=== PATIENT | female | born 1970 | race Caucasian/White ===

== ENCOUNTER 2016-10-02 13:40 | Inpatient (IN) | payer SELFPAY ==
[~2016-10-02] VITALS: Ht 162.6 cm; Wt 91.6 kg
[2016-10-02] MEDS ORDERED: ONDANSETRON PF 4 MG/2 ML VIAL. IV ONE (15:00)
[2016-10-02] MEDS ORDERED: IV NORMAL SALINE 1000ML BAG 1,000 ML IV ONE ×2 (15:00→18:00)
[2016-10-02 15:48] LABS: BASO # 0.1 x10^3/uL (0.0-0.2); BASO % 0 % (0-3); EOS % 0 % (0-3); HEMATOCRIT 43.5 % (36.0-47.0); HEMOGLOBIN 14.5 g/dL (12.0-15.5); LYMPH # 0.9 x10^3/uL (1.0-4.8); LYMPH % 3 % (24-48); MEAN CORPUSCULAR HEMOGLOBIN 29 pg (25-35); MEAN CORPUSCULAR HGB CONC 33 g/dL (31-37); MEAN CORPUSCULAR VOLUME 87 fL (79-100); MONO % 4 % (0-9); NEUT % 92 % (31-73); PLATELET COUNT 319 x10^3/uL (140-400); RED BLOOD COUNT 5.01 x10^6/uL (3.50-5.40); RED CELL DISTRIBUTION WIDTH 13.2 % (11.5-14.5); WHITE BLOOD COUNT 25.1 x10^3/uL (4.0-11.0)
--- NOTE | 2016-10-02 15:51 | RAD ---
Examination: Acute abdomen series History: History of constipation for 5 days. Comparison: None available Findings: The cardiomediastinal silhouette grossly appears unremarkable. There is no acute infiltrate or visualized pneumothorax. No evidence of free air noted under the hemidiaphragms. Feces and gas noted in the colon. Minimal air-fluid levels identified in the midabdomen. Impression: 1. No acute cardiopulmonary findings. 2. Minimal air-fluid levels identified in the midabdomen, probably bowel distention. Correlate clinically.
[2016-10-02 16:00] LABS: CALCIUM 8.8 mg/dL (8.5-10.1); GFR 60.2; POTASSIUM 3.3 mmol/L (3.5-5.1)
[2016-10-02 16:06] LABS: ALBUMIN 2.9 g/dL (3.4-5.0); ALBUMIN/GLOBULIN RATIO 0.5 (1.0-1.7); TOTAL BILIRUBIN 1.3 mg/dL (0.2-1.0); TOTAL PROTEIN 8.2 g/dL (6.4-8.2)
[2016-10-02] MEDS ORDERED: IOHEXOL 300 MG/ML 75 ML VIAL IV ONE (16:30)
[2016-10-02] MEDS ORDERED: CONTRAST GIVEN MC PRN (16:30)
[2016-10-02 16:36] LABS: PLT ESTIMATE ADEQUATE (ADEQUATE)
[2016-10-02] MEDS ORDERED: PROCHLORPERAZINE 10 MG/2 ML VIAL. IV ONE (16:45)
--- NOTE | 2016-10-02 16:52 | PHYS DOC ---
Past Medical History Past Medical History: Other Additional Past Medical Histor: PANIC DISORDER Past Surgical History: No Surgical History Alcohol Use: None Drug Use: None Adult General Chief Complaint Chief Complaint: ABDOMINAL PAIN HPI HPI Patient is a 45 year old female who presents with moderate generalized abdominal pain with vomiting that began 5 days ago. Patient states she has history of constipation and believes she is constipated. Patient denies any known cause for her constipation. She states her last bowel movement was 5 days ago and normal. Patient states she has tried enemas with no relief. Patient denies any chance she is . Review of Systems Review of Systems Constitutional: Denies fever or chills [] Eyes: Denies change in visual acuity, redness, or eye pain [] HENT: Denies nasal congestion or sore throat [] Respiratory: Denies cough or shortness of breath [] Cardiovascular: No additional information not addressed in HPI [] GI: Generalized abdominal pain and vomiting : Denies dysuria or hematuria [] Musculoskeletal: Denies back pain or joint pain [] Integument: Denies rash or skin lesions [] Neurologic: Denies headache, focal weakness or sensory changes [] Endocrine: Denies polyuria or polydipsia [] Current Medications Current Medications Current Medications Medications (Trade) Dose Ordered Sig/Jennifer Start Time Stop Time Status Last Admin Dose Admin Dobutamine HCl/ Dextrose 250 ml @ 0 mls/hr CONT PRN 10/02/16 18:00 Info (Do NOT chart on this entry -- for MONITORING) 1 each PRN DAILY PRN 10/02/16 16:30 10/04/16 16:29 Iohexol (Omnipaque 300 Mg/ml) 75 ml 1X ONCE 10/02/16 16:30 10/02/16 16:31 DC 10/02/16 17:07 75 ML Norepinephrine Bitartrate 250 ml @ 0 mls/hr CONT PRN 10/02/16 18:00 Ondansetron HCl (Zofran) 4 mg 1X ONCE 10/02/16 15:00 10/02/16 15:01 DC 10/02/16 15:40 4 MG Prochlorperazine Edisylate (Compazine) 10 mg 1X ONCE 10/02/16 16:45 10/02/16 16:46 DC 10/02/16 16:42 10 MG Sodium Chloride 1,000 ml @ 1,000 mls/hr 1X ONCE 10/02/16 15:00 10/02/16 15:59 DC 10/02/16 15:40 1,000 MLS/HR Allergies Allergies Allergies Coded Allergies Type Severity Reaction Last Updated Verified codeine Adverse Reaction Intermediate N/V 10/02/16 Yes hydrocodone Adverse Reaction Intermediate N/V 10/02/16 Yes Physical Exam Physical Exam Constitutional: Well developed, well nourished, no acute distress, non-toxic appearance. [] HENT: Normocephalic, atraumatic, bilateral external ears normal, oropharynx moist, no oral exudates, nose normal. [] Eyes: PERRLA, EOMI, conjunctiva normal, no discharge. [] Neck: Normal range of motion, no tenderness, supple, no stridor. [] Cardiovascular:Heart rate regular rhythm, no murmur [] Lungs & Thorax: Bilateral breath sounds clear to auscultation [] Abdomen: Bowel sounds normal, soft, no tenderness, no masses, no pulsatile masses. [] Skin: Warm, dry, no erythema, no rash. [] Back: No tenderness, no CVA tenderness. [] Extremities: No tenderness, no cyanosis, no clubbing, ROM intact, no edema. [] Neurologic: Alert and oriented X 3, normal motor function, normal sensory function, no focal deficits noted. [] Psychologic: Affect normal, judgement normal, mood normal. [] Current Patient Data Vital Signs Vital Signs Date Time Temp Pulse Resp B/P (MAP) Pulse Ox O2 Delivery O2 Flow Rate FiO2 10/02/16 17:18 115/65 (82) 10/02/16 15:25 106 98 10/02/16 14:55 97.6 18 Room Air 97.6 Lab Values Laboratory Tests Test 10/02/16 15:35 White Blood Count 25.1 x10^3/uL (4.0-11.0) H Red Blood Count 5.01 x10^6/uL (3.50-5.40) Hemoglobin 14.5 g/dL (12.0-15.5) Hematocrit 43.5 % (36.0-47.0) Mean Corpuscular Volume 87 fL (79-100) Mean Corpuscular Hemoglobin 29 pg (25-35) Mean Corpuscular Hemoglobin Concent 33 g/dL (31-37) Red Cell Distribution Width 13.2 % (11.5-14.5) Platelet Count 319 x10^3/uL (140-400) Neutrophils (%) (Auto) 92 % (31-73) H Lymphocytes (%) (Auto) 3 % (24-48) L Monocytes (%) (Auto) 4 % (0-9) Eosinophils (%) (Auto) 0 % (0-3) Basophils (%) (Auto) 0 % (0-3) Neutrophils # (Auto) 23.2 x10^3uL (1.8-7.7) H Lymphocytes # (Auto) 0.9 x10^3/uL (1.0-4.8) L Monocytes # (Auto) 1.0 x10^3/uL (0.0-1.1) Eosinophils # (Auto) 0.1 x10^3/uL (0.0-0.7) Basophils # (Auto) 0.1 x10^3/uL (0.0-0.2) Segmented Neutrophils % 86 % (35-66) H Band Neutrophils % 4 % (0-9) Lymphocytes % 6 % (24-48) L Monocytes % 4 % (0-10) Platelet Estimate Adequate (ADEQUATE) Sodium Level 129 mmol/L (136-145) L Potassium Level 3.3 mmol/L (3.5-5.1) L Chloride Level 90 mmol/L (98-107) L Carbon Dioxide Level 34 mmol/L (21-32) H Anion Gap 5 (6-14) L Blood Urea Nitrogen 22 mg/dL (7-20) H Creatinine 1.0 mg/dL (0.6-1.0) Estimated GFR (Cockcroft-Gault) 60.2 BUN/Creatinine Ratio 22 (6-20) H Glucose Level 141 mg/dL (70-99) H Calcium Level 8.8 mg/dL (8.5-10.1) Total Bilirubin 1.3 mg/dL (0.2-1.0) H Aspartate Amino Transferase (AST) 50 U/L (15-37) H Alanine Aminotransferase (ALT) 169 U/L (14-59) H Alkaline Phosphatase 146 U/L (46-116) H Total Protein 8.2 g/dL (6.4-8.2) Albumin 2.9 g/dL (3.4-5.0) L Albumin/Globulin Ratio 0.5 (1.0-1.7) L Lipase 337 U/L (73-393) Laboratory Tests 10/02/16 15:35 Laboratory Tests 10/02/16 15:35 EKG EKG [] Radiology/Procedures Radiology/Procedures []PROCEDURE: ACUTE ABDOMEN SERIES Examination: Acute abdomen series History: History of constipation for 5 days. Comparison: None available Findings: The cardiomediastinal silhouette grossly appears unremarkable. There is no acute infiltrate or visualized pneumothorax. No evidence of free air noted under the hemidiaphragms. Feces and gas noted in the colon. Minimal air-fluid levels identified in the midabdomen. Impression: 1. No acute cardiopulmonary findings. 2. Minimal air-fluid levels identified in the midabdomen, probably bowel distention. Correlate clinically. DICTATED and SIGNED BY: LIBERTY VAZQUEZ MD DATE: 10/02/16 1546 CC: HARRISON RIVAS APRN; NO PCP; NON,STAFF ~ Course & Med Decision Making Course & Med Decision Making Pertinent Labs and Imaging studies reviewed. (See chart for details) This is a 45-year-old female patient who presents today with vomiting and generalized abdominal pain that began 5 days ago. Patient states she believes she is constipated. Her last bowel movement was 5 days ago normal. Patient denies any known cause for her constipation. Acute abdominal series was noted for air fluid levels identified in the abdomen and probably bowel distention. CBC with a WBC of 25.1. CT abdomen and pelvic was ordered, sodium 129. Patient is not confused. Normal saline was ordered with sepsis protocal observed though she does not meet the sepsis protocol fully. Blood cultures were also ordered. She was started on antibiotics. CMP with AST of 50, ALT of 169, ALT of 146. Temperature 97.6, heart rate 100, respiration 18 on room air, blood pressure 123/70. Consulted with Dr. Najera and patient was admitted. CT of abdomen pending Dragon Disclaimer Dragon Disclaimer This electronic medical record was generated, in whole or in part, using a voice recognition dictation system. Departure Departure Impression: Primary Impression: Intractable nausea and vomiting Additional Impressions: Abdominal pain Hyponatremia Leukocytosis Disposition: ADMITTED INPATIENT Admitting Physician: Other Condition: STABLE Referrals: NO PCP (PCP) Problem Qualifiers Primary Impression: Intractable nausea and vomiting Vomiting type: unspecified Qualified Codes: R11.2 - Nausea with vomiting, unspecified Additional Impressions: Abdominal pain Abdominal location: generalized Qualified Codes: R10.84 - Generalized abdominal pain Leukocytosis Leukocytosis type: unspecified Qualified Codes: D72.829 - Elevated white blood cell count, unspecified HARRISON RIVAS [employer] Oct 02, 2016 16:52
[2016-10-02 17:31] LABS: BILIRUBIN,URINE NEGATIVE (NEG); GLUCOSE,URINE NEGATIVE (NEG); NITRITE,URINE NEGATIVE (NEG); PH,URINE 6.5; PROTEIN,URINE 100 mg/dL (NEG-TRACE); UROBILINOGEN,URINE 0.2 mg/dL (0.2 mg/dL)
--- NOTE | 2016-10-02 17:45 | RAD ---
EXAM: Abdomen and pelvis CT with intravenous contrast. HISTORY: Pain. TECHNIQUE: Computed tomographic images of the abdomen and pelvis were obtained following the administration of 75 cc Omnipaque 300 intravenous contrast. Multiplanar reformatting was performed. *One or more of the following individualized dose reduction techniques were utilized for this examination: 1. Automated exposure control. 2. Adjustment of the mA and/or kV according to patient size. 3. Use of iterative reconstruction technique. COMPARISON: None. FINDINGS: Evaluation of the lower thorax demonstrates small left and trace right pleural effusions with lingular and left greater than right lower lobe airspace disease. The heart is normal in size. No hepatic lesion is seen. The spleen is normal in size. The adrenal glands and kidneys are unremarkable. The pancreas is mildly diffusely enlarged and there is diffuse peripancreatic fatty stranding and trace fluid, consistent with acute pancreatitis. No focal pancreatic lesion is seen. No loculated fluid collection is seen. The appendix is normal in appearance. There is mild thickening of the splenic flexure the colon, likely reactive given adjacent pancreatitis. There is no obstruction. There are reactive lymph nodes in the peripancreatic distribution. The uterus, ovaries and bladder are unremarkable. There is no suspicious osseous lesion. IMPRESSION: 1. Acute pancreatitis. There is associated peripancreatic fatty stranding, trace fluid and reactive lymph nodes. No pseudocyst is identified. 2. Small amount of pelvic free fluid, likely physiologic or due to aforementioned acute pancreatitis. 3. Small left and trace right pleural effusions with lingular and left greater than right lower lobe airspace disease, likely due to atelectasis Electronically signed by: Marian Cook MD (10/02/2016 5:43 PM)
[2016-10-02] MEDS ORDERED: ONDANSETRON PF 4 MG/2 ML VIAL. IV PRN (18:00)
[2016-10-02] MEDS ORDERED: PROCHLORPERAZINE 10 MG/2 ML VIAL. IV PRN (18:00)
[2016-10-02] MEDS ORDERED: fentaNYL PF VIAL 100 MCG/2 ML VIAL IV PRN (18:00)
[2016-10-02] MEDS ORDERED: NOREPINEPHRIN PREMIX 250 ML IV PRN (18:00)
[2016-10-02 18:03] LABS: BACTERIA,URINE 0 /HPF (0-FEW); SQUAMOUS EPITHELIAL CELL,UR MOD /LPF
[2016-10-02] MEDS: FAMOTIDINE 20 MG/2 ML VIAL IVP SCH (19:26)
[2016-10-02 20:15] VITALS: BP 118/75
[2016-10-02 23:50] VITALS: BP 112/70
--- NOTE | 2016-10-02 23:56 | ACF ---
Admission Forms Criteria VOMITING Clinical Indications for Admission to Inpatient Care ( Place 'X' for any and all applicable criteria): Admission is indicated for 1 or more of the following(1)(2)(3): [ ]I. Complete or partial gastrointestinal obstruction [ ]II. Vomiting due to significant metabolic derangement (eg, severe hypercalcemia, diabetic ketoacidosis) [ ]III. Other cause of vomiting requiring hospitalization (eg, poisoning, increased intracranial pressure) [X]IV. Inpatient admission required rather than observation care because of 1 or more of the following [ ]i) Hemodynamic instability [ ]ii) Vomiting that is severe or persistent indicated by 1 or more of the following 1) Numerous episodes of vomiting in past 24hours (eg, every 1 to 2 hours) 2) Suggests severe underlying cause or complication (eg , projectile, feculent, bilious, coffee ground, bloody) 3) Appropriate antiemetic treatment (eg, repeated oral or parenteral dosing) does not sufficiently reduce vomiting within 12 to 24 hours of treatment 4) Treatment regimen necessary to adequately control vomiting requires inpatient level of care (eg, not immediately available in outpatient setting) [X]iii) Severe electrolyte abnormalities requiring inpatient care [ ]iv) Severe pain requiring acute inpatient management( Continuous or frequent (eg, every 2 to 4 hours) parental analgesics or analgesic regimen that can only be performed or initiated in inpatient setting) [ ]v) High fever or infection requiring inpatient admission as indicated by 1 or more of the following(7)(8): [ ]1) Appropriate outpatient or observation care antimicrobial treatment unavailable, not effective, or not feasible [ ]2) Documented bacteremia [ ]3) Temp >104.9 degrees F (40.5 degrees C) (oral) [ ]4) Temp >103.1 degrees F (39.5 C) (oral) or <96.8 degrees F (36 C) (rectal) that does not respond to all emergency treatment measures [ ]vi) Acute renal failure [ ]vii) IV fluid required rather than oral rehydration to replace significant on going losses (greater than 3 L/m2 per day) [ ]viii) Parenteral nutrition regimen that must be implemented on inpatient basis [X]ix) Other condition, treatment or monitoring requiring inpatient admission Extended stay beyond goal length of stay may be needed for(1)(4): [ ]a) Severe vomiting [ ]b) Persistent vomiting, vital sign changes, severe electrolyte imbalance , or diagnosed cause of vomiting that requires continued hospitalization (eg, gastrointestinal obstruction , increased intracranial pressure) [ ]c) Surgery to treat identified causes of vomiting (eg, bowel obstruction , intracranial process) [ ]d) Comorbid illness that requires inpatient care (eg, acute heart failure , renal failure) [ ]e) Need for inpatient endoscopy The original [facility] content created by [email or web address] has been revised. The portions of the content which have been revised are identified through the use of italic text or in bold, and [facility] has neither reviewed nor approved the modified material. All other unmodified content is copyright [facility]. Please see references footnoted in the original [facility] edition 2016 Admission Criteria Met?: Yes ARMANDO SMITH Oct 02, 2016 23:56 SHANNON HANSEN MD Oct 05, 2016 17:30
--- NOTE | 2016-10-03 00:16 | HP ---
ADMIT DATE: 10/02/2016 CHIEF COMPLAINT: Intractable nausea, vomiting. HISTORY OF PRESENT ILLNESS: The patient is a 45-year-old woman without any past medical history who presented to the Emergency Room with moderate abdominal pain resulting from 4 days of nausea and vomiting. She related that last Saturday she ate a sandwich and after that started vomiting continuously for the past 4 days. She relates that she occasionally has issues with vomiting when she gets constipated. Normal bowel movement pattern for her is twice a week. She states her last bowel movement was about 5 days ago was normal. She did try an enema this morning with only minor results. She denies any fevers, chills, no sick contacts at home. Currently, nausea is much better controlled. Her abdominal pain is especially in the epigastric area and worse with deep breathing or coughing. PAST MEDICAL HISTORY: Anxiety, agoraphobia. FAMILY HISTORY: No GI or psych issues known. ALLERGIES: CODEINE, HYDROCODONE. MEDICATIONS: No home medications listed. REVIEW OF SYSTEMS: Currently, nausea is fairly well controlled, she has received both Zofran as well as Compazine. She has hiccups intermittently, abdominal pain in the epigastric area is persisting. Rest of organ system review is negative. PHYSICAL EXAMINATION: VITAL SIGNS: From today show blood pressure of 118/75, heart rate of 103, respiratory rate at 11. She is afebrile. GENERAL: This is an obese 45-year-old woman, alert and oriented, in no acute distress. HEENT: Shows no scleral icterus. NECK: Supple, without any lymphadenopathy. LUNGS: Clear. CARDIOVASCULAR: Heart is tachycardic. No murmurs appreciated. ABDOMEN: Tenderness to palpation in the epigastric area and along the costal margin. No rebound. EXTREMITIES: Show no edema. SKIN: Warm, soft and dry. LABORATORY DATA: CBC with WBC of 25.1, hemoglobin of 14 and platelet count of 319. Manual diff with 86% segs, 4% bands. Chemistries with a BUN and creatinine of 22 and 1, sodium at 129, potassium 3.3, CO2 at 34. LFTs with an AST of 50, ALT of 169, alkaline phosphatase of 146, total bilirubin at 1.3, albumin 2.9. Urine is pertinent for specific gravity greater than 1.030. IMAGING: CT of the abdomen and pelvis reveals acute pancreatitis. There is associated peripancreatic fat stranding, trace fluid and reactive lymph nodes. ASSESSMENT AND PLAN: The patient is a 45-year-old woman who presents with nausea, vomiting and incidental finding of pancreatitis per CT. Lipase has not been obtained in the Emergency Room. We will check that. She is n.p.o. for right now. We will await improvement of her labs before starting p.o. fluids with complete bowel rest, IV fluids will be continued. Her electrolytes will be repleted as indicated. We will monitor with serial labs. The patient does have agoraphobia, which actually has kept her in her parents' house for the past 9 years. She is not on any home medications as she is not insured. We will make Ativan available for her p.r.n. IV for the time being. She is reassured just knowing that she has medications available if needed. SHANNON HANSEN MD DR: UR/nts JOB#: [id number] / [id number] PAZ
[2016-10-03 03:30] VITALS: BP 107/64
[2016-10-03] MEDS: fentaNYL PF VIAL 100 MCG/2 ML VIAL IV PRN ×3 (03:49→16:30)
[2016-10-03 04:56] LABS: BASO % 0 % (0-3); EOS % 0 % (0-3); HEMATOCRIT 35.6 % (36.0-47.0); HEMOGLOBIN 11.8 g/dL (12.0-15.5); LYMPH % 5 % (24-48); MEAN CORPUSCULAR HEMOGLOBIN 29 pg (25-35); MEAN CORPUSCULAR HGB CONC 33 g/dL (31-37); MEAN CORPUSCULAR VOLUME 88 fL (79-100); MONO % 5 % (0-9); NEUT % 90 % (31-73); PLATELET COUNT 274 x10^3/uL (140-400); RED BLOOD COUNT 4.07 x10^6/uL (3.50-5.40); RED CELL DISTRIBUTION WIDTH 13.4 % (11.5-14.5); WHITE BLOOD COUNT 21.3 x10^3/uL (4.0-11.0)
[2016-10-03 05:42] LABS: ALBUMIN 2.2 g/dL (3.4-5.0); ALBUMIN/GLOBULIN RATIO 0.5 (1.0-1.7); CALCIUM 7.6 mg/dL (8.5-10.1); CREATININE 0.7 mg/dL (0.6-1.0); GFR 90.9; TOTAL PROTEIN 6.5 g/dL (6.4-8.2)
[2016-10-03 05:45] LABS: POTASSIUM 2.9 mmol/L (3.5-5.1)
[2016-10-03 07:00] VITALS: BP 116/67
[2016-10-03] MEDS: POTASSIUM CHLORIDE 20 MEQ TABLET.ER. PO SCH ×2 (08:00→12:00)
[2016-10-03] MEDS: FAMOTIDINE 20 MG/2 ML VIAL IVP SCH ×2 (08:41→21:23)
--- NOTE | 2016-10-03 10:34 | PDOC2 ---
GI CONSULT Reason For Consult: N/v, pain HPI: HPI: 45 y/o female admitted through the ER. Reports onset of n/v and epigastric pain w/ radiation through to her back on Saturday (09/29), about 15-20 min after eating a ham sandwich. Has been unable to tolerate much PO. Does have h/o heartburn and post-prandial bloating ("can't burp") w/ intermittent vomiting, uses Pepcid PRN. No diarrhea, hematemesis, hematochezia, melena. H/o constipation, usually 1-3 stools weekly, untreated. Takes Advil for menstrual cramps. No previous EGD or colonoscopy. No h/o pancreatitis. CT A/P suggestive of acute pancreatitis. Lipase has been normal, some elevation in LFTs. Has leukocytosis and is hypokalemic today. Trigs normal, abd US ordered. PMH: PMH: panic disorder FH: Family History: Cancer (MGM and great-grandmother had colon cancer), CAD, Other (mother has "GI issues," also had cholecystectomy) Social History: Smoke: No ALCOHOL: none Drugs: None ROS: GEN: Denies fevers, chills, sweats HEENT: Denies blurred vision, sore throat CV: Denies chest pain RESP: Denies shortness of air, cough GI: Per HPI : Denies hematuria, dysuria ENDO: Denies weight changes NEURO: Denies confusion, dizziness MSK: Denies weakness, joint pain/swelling SKIN: Denies jaundice, pruritus Vitals: Vitals: Vital Signs Date Time Temp Pulse Resp B/P (MAP) Pulse Ox O2 Delivery O2 Flow Rate FiO2 10/03/16 07:00 99.4 89 18 116/67 (83) 93 Room Air 99.4 Labs: Labs: Laboratory Tests Test 10/02/16 15:20 10/02/16 15:35 10/03/16 03:40 Urine Collection Type Unknown Urine Color Yellow Urine Clarity Clear Urine pH 6.5 Urine Specific Ingraham >=1.030 Urine Protein 100 mg/dL (NEG-TRACE) Urine Glucose (UA) Negative mg/dL (NEG) Urine Ketones (Stick) 40 mg/dL (NEG) Urine Blood Negative (NEG) Urine Nitrite Negative (NEG) Urine Bilirubin Negative (NEG) Urine Urobilinogen Dipstick 0.2 mg/dL (0.2 mg/dL) Urine Leukocyte Esterase Small (NEG) Urine RBC 1-2 /HPF (0-2) Urine WBC 1-4 /HPF (0-4) Urine Squamous Epithelial Cells Mod /LPF Urine Transitional Epithelial Cells Few /LPF Urine Bacteria 0 /HPF (0-FEW) White Blood Count 25.1 x10^3/uL (4.0-11.0) 21.3 x10^3/uL (4.0-11.0) Red Blood Count 5.01 x10^6/uL (3.50-5.40) 4.07 x10^6/uL (3.50-5.40) Hemoglobin 14.5 g/dL (12.0-15.5) 11.8 g/dL (12.0-15.5) Hematocrit 43.5 % (36.0-47.0) 35.6 % (36.0-47.0) Mean Corpuscular Volume 87 fL (79-100) 88 fL (79-100) Mean Corpuscular Hemoglobin 29 pg (25-35) 29 pg (25-35) Mean Corpuscular Hemoglobin Concent 33 g/dL (31-37) 33 g/dL (31-37) Red Cell Distribution Width 13.2 % (11.5-14.5) 13.4 % (11.5-14.5) Platelet Count 319 x10^3/uL (140-400) 274 x10^3/uL (140-400) Neutrophils (%) (Auto) 92 % (31-73) 90 % (31-73) Lymphocytes (%) (Auto) 3 % (24-48) 5 % (24-48) Monocytes (%) (Auto) 4 % (0-9) 5 % (0-9) Eosinophils (%) (Auto) 0 % (0-3) 0 % (0-3) Basophils (%) (Auto) 0 % (0-3) 0 % (0-3) Neutrophils # (Auto) 23.2 x10^3uL (1.8-7.7) 19.1 x10^3uL (1.8-7.7) Lymphocytes # (Auto) 0.9 x10^3/uL (1.0-4.8) 1.0 x10^3/uL (1.0-4.8) Monocytes # (Auto) 1.0 x10^3/uL (0.0-1.1) 1.1 x10^3/uL (0.0-1.1) Eosinophils # (Auto) 0.1 x10^3/uL (0.0-0.7) 0.0 x10^3/uL (0.0-0.7) Basophils # (Auto) 0.1 x10^3/uL (0.0-0.2) 0.0 x10^3/uL (0.0-0.2) Segmented Neutrophils % 86 % (35-66) Band Neutrophils % 4 % (0-9) Lymphocytes % 6 % (24-48) Monocytes % 4 % (0-10) Platelet Estimate Adequate (ADEQUATE) Sodium Level 129 mmol/L (136-145) 134 mmol/L (136-145) Potassium Level 3.3 mmol/L (3.5-5.1) 2.9 mmol/L (3.5-5.1) Chloride Level 90 mmol/L (98-107) 96 mmol/L (98-107) Carbon Dioxide Level 34 mmol/L (21-32) 29 mmol/L (21-32) Anion Gap 5 (6-14) 9 (6-14) Blood Urea Nitrogen 22 mg/dL (7-20) 14 mg/dL (7-20) Creatinine 1.0 mg/dL (0.6-1.0) 0.7 mg/dL (0.6-1.0) Estimated GFR (Cockcroft-Gault) 60.2 90.9 BUN/Creatinine Ratio 22 (6-20) 20 (6-20) Glucose Level 141 mg/dL (70-99) 105 mg/dL (70-99) Calcium Level 8.8 mg/dL (8.5-10.1) 7.6 mg/dL (8.5-10.1) Total Bilirubin 1.3 mg/dL (0.2-1.0) 1.0 mg/dL (0.2-1.0) Aspartate Amino Transf (AST/SGOT) 50 U/L (15-37) 33 U/L (15-37) Alanine Aminotransferase (ALT/SGPT) 169 U/L (14-59) 106 U/L (14-59) Alkaline Phosphatase 146 U/L (46-116) 123 U/L (46-116) Total Protein 8.2 g/dL (6.4-8.2) 6.5 g/dL (6.4-8.2) Albumin 2.9 g/dL (3.4-5.0) 2.2 g/dL (3.4-5.0) Albumin/Globulin Ratio 0.5 (1.0-1.7) 0.5 (1.0-1.7) Lipase 361 U/L (73-393) 173 U/L (73-393) Triglycerides Level 52 mg/dL (0-150) Allergies: Coded Allergies: codeine (Verified Adverse Reaction, Intermediate, N/V, 10/02/16) hydrocodone (Verified Adverse Reaction, Intermediate, N/V, 10/02/16) Medications: Current Medications Medications (Trade) Dose Ordered Sig/Jennifer Route PRN Reason Start Time Stop Time Status Last Admin Dose Admin Sodium Chloride 1,000 ml @ 1,000 mls/hr 1X ONCE IV 10/02/16 15:00 10/02/16 15:59 DC 10/02/16 15:40 Ondansetron HCl (Zofran) 4 mg 1X ONCE IV 10/02/16 15:00 10/02/16 15:01 DC 10/02/16 15:40 Iohexol (Omnipaque 300 Mg/ml) 75 ml 1X ONCE IV 10/02/16 16:30 10/02/16 16:31 DC 10/02/16 17:07 Prochlorperazine Edisylate (Compazine) 10 mg 1X ONCE IV 10/02/16 16:45 10/02/16 16:46 DC 10/02/16 16:42 Sodium Chloride 1,000 ml @ 125 mls/hr 1X ONCE IV 10/02/16 18:00 10/03/16 01:59 DC 10/02/16 19:27 Famotidine (Pepcid) 20 mg BID IVP 10/02/16 18:30 10/03/16 08:41 Fentanyl Citrate (Fentanyl 2ml Vial) 25 mcg PRN Q2HR PRN IV SEVERE PAIN 10/02/16 23:00 10/03/16 22:59 10/03/16 03:49 Imaging: Imaging: Acute Abd Series Impression: 1. No acute cardiopulmonary findings. 2. Minimal air-fluid levels identified in the midabdomen, probably bowel distention. Correlate clinically. CT A/P w/ IV contrast IMPRESSION: 1. Acute pancreatitis. There is associated peripancreatic fatty stranding, trace fluid and reactive lymph nodes. No pseudocyst is identified. 2. Small amount of pelvic free fluid, likely physiologic or due to aforementioned acute pancreatitis. 3. Small left and trace right pleural effusions with lingular and left greater than right lower lobe airspace disease, likely due to atelectasis PE: GEN: NAD HEENT: Atraumatic, PERRL LUNGS: CTAB anteriorly HEART: RRR ABD: NABS, soft, non-distended, doesn't seem too tender EXTREMITY: No edema SKIN: No rashes, no jaundice NEURO/PSYCH: A & O 3 A/P: A/P: Upper abd pain, n/v -onset 09/29 after eating a sandwich, unable to tolerate much PO since Pancreatitis (on CT) -no h/o alcohol use, triglycerides WNL, abd US ordered Leukocytosis, elevated LFTs Hypokalemia -per primary Heartburn, post-prandial bloating, NSAID use -uses Pepcid PRN, no previous EGD CRC screen, FH colon cancer -no previous colonoscopy -- Await abd US. CYNTHIA WILLIAM Oct 03, 2016 10:34
[2016-10-03 10:56] VITALS: BP 116/69
[2016-10-03] MEDS: POTASSIUM CHLORIDE 10MEQ 100 ML IV SCH ×4 (11:09→18:45)
[2016-10-03] MEDS ORDERED: KETOROLAC TROMETHAMINE 10 MG TABLET PO PRN (14:15)
--- NOTE | 2016-10-03 14:36 | RAD ---
Abdominal ultrasound, 10/03/2016: History: Abdominal pain, nausea and vomiting There are prominent echoes in the gallbladder fossa region with associated posterior acoustic shadowing. The appearance suggests a gallbladder filled with calculi. No definite pericholecystic edema is seen. The common hepatic duct measures 4.5 mm. No intrahepatic biliary ductal dilatation is seen. There is no evidence of a hepatic mass. The pancreas was obscured by overlying bowel. The peripancreatic edema seen on yesterday's CT study is not visible sonographically. The spleen is within normal limits in size. No renal abnormality is detected. The aorta and inferior vena cava were not adequately visualized due to overlying bowel. IMPRESSION: 1. Cholelithiasis. 2. Nonvisualization of the pancreas and central retroperitoneum due to overlying bowel.
[2016-10-03 15:10] VITALS: BP 116/65
--- NOTE | 2016-10-03 16:22 | PDOC ---
Provider Note Provider Note #[id number]--[id number] dictated plan berkley douglass in am at 7:30 JANY TAYLOR MD Oct 03, 2016 16:22
--- NOTE | 2016-10-03 16:54 | PDOC ---
PROGRESS NOTES Chief Complaint Chief Complaint Gall stone pancreatitis Agoraphobia History of Present Illness History of Present Illness Seen and examined Labs noted Notes reviewed Vitals Vitals Vital Signs Date Time Temp Pulse Resp B/P (MAP) Pulse Ox O2 Delivery O2 Flow Rate FiO2 10/03/16 15:10 99.0 90 18 116/65 (82) 99 Room Air 99.0 Physical Exam General: Alert, Oriented X3, Cooperative Heart: Regular rate, Normal S1, Normal S2 Lungs: Clear Abdomen: Other (tender) Extremities: No clubbing, No cyanosis Skin: No rashes, No breakdown Labs LABS Laboratory Tests Test 10/03/16 03:40 White Blood Count 21.3 x10^3/uL (4.0-11.0) Red Blood Count 4.07 x10^6/uL (3.50-5.40) Hemoglobin 11.8 g/dL (12.0-15.5) Hematocrit 35.6 % (36.0-47.0) Mean Corpuscular Volume 88 fL (79-100) Mean Corpuscular Hemoglobin 29 pg (25-35) Mean Corpuscular Hemoglobin Concent 33 g/dL (31-37) Red Cell Distribution Width 13.4 % (11.5-14.5) Platelet Count 274 x10^3/uL (140-400) Neutrophils (%) (Auto) 90 % (31-73) Lymphocytes (%) (Auto) 5 % (24-48) Monocytes (%) (Auto) 5 % (0-9) Eosinophils (%) (Auto) 0 % (0-3) Basophils (%) (Auto) 0 % (0-3) Neutrophils # (Auto) 19.1 x10^3uL (1.8-7.7) Lymphocytes # (Auto) 1.0 x10^3/uL (1.0-4.8) Monocytes # (Auto) 1.1 x10^3/uL (0.0-1.1) Eosinophils # (Auto) 0.0 x10^3/uL (0.0-0.7) Basophils # (Auto) 0.0 x10^3/uL (0.0-0.2) Sodium Level 134 mmol/L (136-145) Potassium Level 2.9 mmol/L (3.5-5.1) Chloride Level 96 mmol/L (98-107) Carbon Dioxide Level 29 mmol/L (21-32) Anion Gap 9 (6-14) Blood Urea Nitrogen 14 mg/dL (7-20) Creatinine 0.7 mg/dL (0.6-1.0) Estimated GFR (Cockcroft-Gault) 90.9 BUN/Creatinine Ratio 20 (6-20) Glucose Level 105 mg/dL (70-99) Calcium Level 7.6 mg/dL (8.5-10.1) Total Bilirubin 1.0 mg/dL (0.2-1.0) Aspartate Amino Transf (AST/SGOT) 33 U/L (15-37) Alanine Aminotransferase (ALT/SGPT) 106 U/L (14-59) Alkaline Phosphatase 123 U/L (46-116) Total Protein 6.5 g/dL (6.4-8.2) Albumin 2.2 g/dL (3.4-5.0) Albumin/Globulin Ratio 0.5 (1.0-1.7) Triglycerides Level 52 mg/dL (0-150) Lipase 173 U/L (73-393) Review of Systems Review of Systems co anxiety co pain Assessment and Plan Assessmemt and Plan Problems Medical Problems: (1) Hyponatremia Status: Acute (2) Leukocytosis Status: Acute Gall stone pancreatitis Agoraphobia Plan Lap neel in am PRN Ativan IV fluids Labs Home meds Problems: Comment Review of Relevant I have reviewed the following items trini (where applicable) has been applied. Labs Laboratory Tests Test 10/02/16 15:20 10/02/16 15:35 10/03/16 03:40 Urine Collection Type Unknown Urine Color Yellow Urine Clarity Clear Urine pH 6.5 Urine Specific [place] >=1.030 Urine Protein 100 mg/dL (NEG-TRACE) Urine Glucose (UA) Negative mg/dL (NEG) Urine Ketones (Stick) 40 mg/dL (NEG) Urine Blood Negative (NEG) Urine Nitrite Negative (NEG) Urine Bilirubin Negative (NEG) Urine Urobilinogen Dipstick 0.2 mg/dL (0.2 mg/dL) Urine Leukocyte Esterase Small (NEG) Urine RBC 1-2 /HPF (0-2) Urine WBC 1-4 /HPF (0-4) Urine Squamous Epithelial Cells Mod /LPF Urine Transitional Epithelial Cells Few /LPF Urine Bacteria 0 /HPF (0-FEW) White Blood Count 25.1 x10^3/uL (4.0-11.0) 21.3 x10^3/uL (4.0-11.0) Red Blood Count 5.01 x10^6/uL (3.50-5.40) 4.07 x10^6/uL (3.50-5.40) Hemoglobin 14.5 g/dL (12.0-15.5) 11.8 g/dL (12.0-15.5) Hematocrit 43.5 % (36.0-47.0) 35.6 % (36.0-47.0) Mean Corpuscular Volume 87 fL (79-100) 88 fL (79-100) Mean Corpuscular Hemoglobin 29 pg (25-35) 29 pg (25-35) Mean Corpuscular Hemoglobin Concent 33 g/dL (31-37) 33 g/dL (31-37) Red Cell Distribution Width 13.2 % (11.5-14.5) 13.4 % (11.5-14.5) Platelet Count 319 x10^3/uL (140-400) 274 x10^3/uL (140-400) Neutrophils (%) (Auto) 92 % (31-73) 90 % (31-73) Lymphocytes (%) (Auto) 3 % (24-48) 5 % (24-48) Monocytes (%) (Auto) 4 % (0-9) 5 % (0-9) Eosinophils (%) (Auto) 0 % (0-3) 0 % (0-3) Basophils (%) (Auto) 0 % (0-3) 0 % (0-3) Neutrophils # (Auto) 23.2 x10^3uL (1.8-7.7) 19.1 x10^3uL (1.8-7.7) Lymphocytes # (Auto) 0.9 x10^3/uL (1.0-4.8) 1.0 x10^3/uL (1.0-4.8) Monocytes # (Auto) 1.0 x10^3/uL (0.0-1.1) 1.1 x10^3/uL (0.0-1.1) Eosinophils # (Auto) 0.1 x10^3/uL (0.0-0.7) 0.0 x10^3/uL (0.0-0.7) Basophils # (Auto) 0.1 x10^3/uL (0.0-0.2) 0.0 x10^3/uL (0.0-0.2) Segmented Neutrophils % 86 % (35-66) Band Neutrophils % 4 % (0-9) Lymphocytes % 6 % (24-48) Monocytes % 4 % (0-10) Platelet Estimate Adequate (ADEQUATE) Sodium Level 129 mmol/L (136-145) 134 mmol/L (136-145) Potassium Level 3.3 mmol/L (3.5-5.1) 2.9 mmol/L (3.5-5.1) Chloride Level 90 mmol/L (98-107) 96 mmol/L (98-107) Carbon Dioxide Level 34 mmol/L (21-32) 29 mmol/L (21-32) Anion Gap 5 (6-14) 9 (6-14) Blood Urea Nitrogen 22 mg/dL (7-20) 14 mg/dL (7-20) Creatinine 1.0 mg/dL (0.6-1.0) 0.7 mg/dL (0.6-1.0) Estimated GFR (Cockcroft-Gault) 60.2 90.9 BUN/Creatinine Ratio 22 (6-20) 20 (6-20) Glucose Level 141 mg/dL (70-99) 105 mg/dL (70-99) Calcium Level 8.8 mg/dL (8.5-10.1) 7.6 mg/dL (8.5-10.1) Total Bilirubin 1.3 mg/dL (0.2-1.0) 1.0 mg/dL (0.2-1.0) Aspartate Amino Transf (AST/SGOT) 50 U/L (15-37) 33 U/L (15-37) Alanine Aminotransferase (ALT/SGPT) 169 U/L (14-59) 106 U/L (14-59) Alkaline Phosphatase 146 U/L (46-116) 123 U/L (46-116) Total Protein 8.2 g/dL (6.4-8.2) 6.5 g/dL (6.4-8.2) Albumin 2.9 g/dL (3.4-5.0) 2.2 g/dL (3.4-5.0) Albumin/Globulin Ratio 0.5 (1.0-1.7) 0.5 (1.0-1.7) Lipase 361 U/L (73-393) 173 U/L (73-393) Triglycerides Level 52 mg/dL (0-150) Laboratory Tests Test 10/03/16 03:40 White Blood Count 21.3 x10^3/uL (4.0-11.0) Red Blood Count 4.07 x10^6/uL (3.50-5.40) Hemoglobin 11.8 g/dL (12.0-15.5) Hematocrit 35.6 % (36.0-47.0) Mean Corpuscular Volume 88 fL (79-100) Mean Corpuscular Hemoglobin 29 pg (25-35) Mean Corpuscular Hemoglobin Concent 33 g/dL (31-37) Red Cell Distribution Width 13.4 % (11.5-14.5) Platelet Count 274 x10^3/uL (140-400) Neutrophils (%) (Auto) 90 % (31-73) Lymphocytes (%) (Auto) 5 % (24-48) Monocytes (%) (Auto) 5 % (0-9) Eosinophils (%) (Auto) 0 % (0-3) Basophils (%) (Auto) 0 % (0-3) Neutrophils # (Auto) 19.1 x10^3uL (1.8-7.7) Lymphocytes # (Auto) 1.0 x10^3/uL (1.0-4.8) Monocytes # (Auto) 1.1 x10^3/uL (0.0-1.1) Eosinophils # (Auto) 0.0 x10^3/uL (0.0-0.7) Basophils # (Auto) 0.0 x10^3/uL (0.0-0.2) Sodium Level 134 mmol/L (136-145) Potassium Level 2.9 mmol/L (3.5-5.1) Chloride Level 96 mmol/L (98-107) Carbon Dioxide Level 29 mmol/L (21-32) Anion Gap 9 (6-14) Blood Urea Nitrogen 14 mg/dL (7-20) Creatinine 0.7 mg/dL (0.6-1.0) Estimated GFR (Cockcroft-Gault) 90.9 BUN/Creatinine Ratio 20 (6-20) Glucose Level 105 mg/dL (70-99) Calcium Level 7.6 mg/dL (8.5-10.1) Total Bilirubin 1.0 mg/dL (0.2-1.0) Aspartate Amino Transf (AST/SGOT) 33 U/L (15-37) Alanine Aminotransferase (ALT/SGPT) 106 U/L (14-59) Alkaline Phosphatase 123 U/L (46-116) Total Protein 6.5 g/dL (6.4-8.2) Albumin 2.2 g/dL (3.4-5.0) Albumin/Globulin Ratio 0.5 (1.0-1.7) Triglycerides Level 52 mg/dL (0-150) Lipase 173 U/L (73-393) Medications Current Medications Sodium Chloride 1,000 ml @ 1,000 mls/hr 1X ONCE IV Last administered on 15:40; Start 10/02/16 at 15:00; Stop 10/02/16 at 15:59; Status DC Ondansetron HCl (Zofran) 4 mg 1X ONCE IV Last administered on 10/02/16 15:40 ; Start 10/02/16 at 15:00; Stop 10/02/16 at 15:01; Status DC Iohexol (Omnipaque 300 Mg/ml) 75 ml 1X ONCE IV Last administered on 10/02/16 17:07; Start 10/02/16 at 16:30; Stop 10/02/16 at 16:31; Status DC Info (Do NOT chart on this entry -- for MONITORING) 1 each PRN DAILY PRN MC SEE COMMENTS; Start 10/02/16 at 16:30; Stop 10/04/16 at 16:29 Prochlorperazine Edisylate (Compazine) 10 mg 1X ONCE IV Last administered on 16:42; Start 10/02/16 at 16:45; Stop 10/02/16 at 16:46; Status DC Norepinephrine Bitartrate 250 ml @ 0 mls/hr CONT PRN IV SEE I/O RECORD; Start 10/02/16 at 18:00; Stop 10/02/16 at 18:42; Status DC Dobutamine HCl/ Dextrose 250 ml @ 0 mls/hr CONT PRN IV SEE I/O RECORD; Start at 18:00; Stop 10/02/16 at 18:42; Status DC Ondansetron HCl (Zofran) 4 mg PRN Q8HRS PRN IV NAUSEA/VOMITING; Start 10/02/16 at 18:00; Stop 10/03/16 at 17:59 Fentanyl Citrate (Fentanyl 2ml Vial) 50 mcg PRN Q1HR PRN IV PAIN; Start at 18:00; Stop 10/02/16 at 22:58; Status DC Sodium Chloride 1,000 ml @ 125 mls/hr 1X ONCE IV Last administered on 19:27; Start 10/02/16 at 18:00; Stop 10/03/16 at 01:59; Status DC Prochlorperazine Edisylate (Compazine) 10 mg Q8HRS PRN IV VOMITING; Start 10/02 at 18:00 Famotidine (Pepcid) 20 mg BID IVP Last administered on 10/03/16 08:41; Start 10/02/16 at 18:30 Fentanyl Citrate (Fentanyl 2ml Vial) 25 mcg PRN Q2HR PRN IV SEVERE PAIN Last administered on 10/03/16 11:03; Start 10/02/16 at 23:00; Stop 10/03/16 at 22:59 Lorazepam (Ativan) 0.5 mg PRN Q8HRS PRN IV ANXIETY / AGITATION; Start 10/02/16 at 23:00 Potassium Chloride (Klor-Con) 40 meq BIDWBKFT/ELI PO ; Start 10/03/16 at 08:00; Stop 10/03/16 at 20:00 Potassium Chloride 100 ml @ 100 mls/hr Q1H IV Last administered on 10/03/16 16:20; Start 10/03/16 at 09:30; Stop 10/03/16 at 13:29; Status DC Ketorolac Tromethamine (Toradol) 30 mg PRN Q6HRS PRN PO MILD PAIN; Start at 14:15; Stop 10/08/16 at 14:14 Cefazolin Sodium/ Dextrose 50 ml @ 100 mls/hr 1X ONCE IV ; Start 10/04/16 at 07:30; Stop 10/04/16 at 07:59 Vitals/I & O Vital Sign - Last 24 Hours 10/02/16 10/02/16 10/02/16 10/02/16 17:18 18:18 20:15 21:39 Temp 97.8 97.8 Pulse 96 103 Resp 11 B/P (MAP) 115/65 (82) 102/59 (73) 118/75 (89) Pulse Ox 96 O2 Delivery Room Air Room Air 10/02/16 10/03/16 10/03/16 10/03/16 23:50 03:30 03:49 07:00 Temp 98.2 97.8 99.4 98.2 97.8 99.4 Pulse 105 96 89 Resp 18 16 18 B/P (MAP) 112/70 (84) 107/64 (78) 116/67 (83) Pulse Ox 97 96 97 93 O2 Delivery Room Air Room Air Room Air Room Air 10/03/16 10/03/16 10/03/16 10/03/16 10:56 11:03 11:33 15:10 Temp 99.2 99.0 99.2 99.0 Pulse 90 90 Resp 18 18 20 18 B/P (MAP) 116/69 (85) 116/65 (82) Pulse Ox 100 99 99 O2 Delivery Room Air Room Air Room Air Room Air Intake and Output 10/02/16 10/02/16 10/03/16 15:00 23:00 07:00 Intake Total 1000 ml 100 ml Balance 1000 ml 100 ml TRACEE LAU III DO Oct 03, 2016 16:54
[2016-10-03] MEDS ORDERED: PROCHLORPERAZINE 10 MG/2 ML VIAL. IV PRN (18:00)
[2016-10-03 19:00] VITALS: BP 113/69
[2016-10-03 21:00] LABS: CALCIUM 7.5 mg/dL (8.5-10.1); CREATININE 0.6 mg/dL (0.6-1.0); GFR 108.6; POTASSIUM 3.4 mmol/L (3.5-5.1)
[2016-10-03] MEDS: ACETAMINOPHEN 325 MG TABLET. PO PRN (21:23)
[2016-10-03] MEDS ORDERED: POTASSIUM CHLORIDE 20 MEQ TABLET.ER. PO ONE (22:00)
[2016-10-03] MEDS: POTASSIUM CHLORIDE 20 MEQ/15 ML ORAL LIQUID. PEG ONE ×2 (22:27→22:30)
[2016-10-03] MEDS ORDERED: POTASSIUM CHLORIDE 20 MEQ/15 ML ORAL LIQUID. PO ONE (22:30)
[2016-10-03 23:00] VITALS: BP 100/69
[2016-10-04] VITALS (11 sets, daily range): BP systolic 96–120; BP diastolic 54–81
[2016-10-04] MEDS ORDERED: fentaNYL PF VIAL 100 MCG/2 ML VIAL IV PRN ×3 (03:00→07:30)
[2016-10-04] MEDS ORDERED: IOHEXOL 300 MG/ML 50 ML VIAL. ONE (07:13)
[2016-10-04] MEDS ORDERED: SURGICEL HEMOSTAT 4X8 EACH. ONE (07:13)
[2016-10-04] MEDS ORDERED: SUCCINYLCHOLINE 200 MG/10 ML VIAL. ONE (07:14)
[2016-10-04] MEDS ORDERED: ONDANSETRON PF 4 MG/2 ML VIAL. ONE (07:14)
[2016-10-04] MEDS ORDERED: DEXAMETHASONE SOD PHOS 20 MG/5 ML VIAL. ONE (07:14)
[2016-10-04] MEDS ORDERED: fentaNYL PF VIAL 100 MCG/2 ML VIAL ONE ×2 (07:14→08:23)
[2016-10-04] MEDS ORDERED: FAMOTIDINE 20 MG/2 ML VIAL ONE (07:14)
[2016-10-04] MEDS ORDERED: ROCURONIUM 50 MG/5 ML VIAL. ONE (07:14)
[2016-10-04] MEDS ORDERED: PROPOFOL 20 ML IV ONE (07:14)
[2016-10-04] MEDS ORDERED: LIDOCAINE 2% PF Vial for OR 5 ML VIAL. ONE (07:14)
[2016-10-04] MEDS ORDERED: IV RINGERS,LACTATED 1000ML 1,000 ML IV SCH ×2 (07:15→07:27)
[2016-10-04] MEDS ORDERED: MIDAZOLAM HCL/PF 2 MG/2 ML VIAL. ONE (07:15)
[2016-10-04] MEDS ORDERED: ONDANSETRON PF 4 MG/2 ML VIAL. IV PRN (07:30)
[2016-10-04] MEDS ORDERED: LIDOCAINE 1% 1 ML SYRINGE. ID PRN (07:30)
[2016-10-04] MEDS ORDERED: PROCHLORPERAZINE 10 MG/2 ML VIAL. IV PRN (07:30)
[2016-10-04] MEDS ORDERED: BUPIVAC MPF-EPI 0.5%-1:200000 30 ML VIAL. ONE (07:30)
[2016-10-04] MEDS ORDERED: BUPIVAC MPF-EPI 0.5%-1:200000 30 ML VIAL. IJ ONE (08:00)
[2016-10-04] MEDS ORDERED: DESFLURANE 61 TO 120 MINUTES IH ONE (08:32)
[2016-10-04] MEDS ORDERED: NEOSTIGMINE METHYLSULFATE 5 MG/5 ML SYRINGE. ONE (08:43)
[2016-10-04] MEDS ORDERED: GLYCOPYRROLATE 1 MG/5 ML VIAL. ONE (08:43)
--- NOTE | 2016-10-04 08:45 | RAD ---
Intraoperative cholangiogram, 10/04/2016: History: Cholecystectomy 3 spot films from surgery are presented for review. Contrast has been injected into the cystic duct remnant. 0.15 minutes of fluoroscopy time was utilized. There is good flow of contrast into the duodenum at the ampulla. No filling defect is seen in the common duct to suggest a retained stone. There is reflux of contrast into a portion of the pancreatic duct. The incompletely opacified intrahepatic ducts are unremarkable. No contrast extravasation is seen. IMPRESSION: No significant abnormality is detected.
[2016-10-04] MEDS ORDERED: KETOROLAC 60 MG/2 ML INJ FOR OR. ONE (08:49)
[2016-10-04] MEDS: FAMOTIDINE 20 MG/2 ML VIAL IVP SCH ×2 (09:00→21:44)
--- NOTE | 2016-10-04 09:05 | PDOC ---
BRIEF OPERATIVE NOTE Pre-Op Diagnosis gallstone panc lap neel, ioc geta ebl 10 ivf 900 [address] well to rr stable JANY TAYLOR MD Oct 04, 2016 09:05
[2016-10-04] MEDS ORDERED: IBUPROFEN 800 MG TABLET. PO PRN (09:15)
--- NOTE | 2016-10-04 10:33 | PDOC ---
Objective: Objective: Out for surgery. Vital Signs: Vital Signs Date Time Temp Pulse Resp B/P (MAP) Pulse Ox O2 Delivery O2 Flow Rate FiO2 10/04/16 09:55 97.4 80 16 105/61 93 Room Air 97.4 10/04/16 09:10 10 Labs: Laboratory Tests Test 10/03/16 20:30 Sodium Level 134 mmol/L Potassium Level 3.4 mmol/L Chloride Level 99 mmol/L Carbon Dioxide Level 27 mmol/L Anion Gap 8 Blood Urea Nitrogen 11 mg/dL Creatinine 0.6 mg/dL Estimated GFR (Cockcroft-Gault) 108.6 Glucose Level 110 mg/dL Calcium Level 7.5 mg/dL Imaging: Abd US IMPRESSION: 1. Cholelithiasis. 2. Nonvisualization of the pancreas and central retroperitoneum due to overlying bowel. IOC IMPRESSION: No significant abnormality is detected. PE: GEN: NAD HEENT: Atraumatic, PERRLA LUNGS: CTAB HEART: RRR, no murmurs ABD: NABS, S/ND/NT, no masses EXTREMITY: No edema SKIN: No rashes, no jaundice NEURO/PSYCH: A & O 3 A/P: Gallstone pancreatitis, leukocytosis -- Cholecystectomy today, will follow. CYNTHIA WILLIAM Oct 04, 2016 10:33
--- NOTE | 2016-10-04 11:09 | CONS ---
INCOMPLETE DICTATION--THE SYSTEM ABRUPTLY CUT OFF. PLEASE DISREGARD AND REFER TO THE FULL AND COMPLETE DICTATED CONSULT. DATE OF CONSULTATION: 10/03/2016 HISTORY OF PRESENT ILLNESS: The patient is a 45-year-old female who presents with epigastric and right upper quadrant pain since Saturday. The pain was severe. This is somewhat better, but still persistent. It has been sharp, constant type of pain. It does radiate to her back. It has been associated with nausea and vomiting. She has had similar episodes of pain like this in the past, but they lasted usually only 30 minutes. This is the first episode that lasted for days. She was admitted through the Emergency Room where CT scan of the abdomen and pelvis was consistent with acute pancreatitis. Then she subsequently had an ultrasound of her abdomen and pelvis which showed cholelithiasis. PAST MEDICAL HISTORY: Severe disabling anxiety that leaves her homebound. PAST SURGICAL HISTORY: Denies. MEDICATIONS: Denies. ALLERGIES: 1. CODEINE. 2. HYDROCODONE. She states she usually takes Advil for pain. SOCIAL HISTORY: She is a nonsmoker, nondrinker. She lives with her parents. I asked what she does for living. She is unemployed due to her severe disabling anxiety that leaves her unable to leave her parents' house. She describes her existence as where she is a "mooch" from her parents. I asked if she has ever taken medicine for anxiety in the past, she says she had, but that she does not like the way it makes her feel. Her parents are in the room and they say that they are unable to get her to leave the house due to her disabling anxiety. FAMILY HISTORY: Her father admits that he has severe anxiety as well. Her mother admits that she has had her cholecystectomy in the past. REVIEW OF SYSTEMS: CONSTITUTIONAL: No fevers or chills. EYES: No abrupt loss of vision or double vision. EARS, NOSE, MOUTH, AND THROAT: No loss of hearing or ringing in her ears. CARDIOVASCULAR: No chest pain or heart palpitations. RESPIRATORY: No cough or shortness of breath. GASTROINTESTINAL: See HPI. GENITOURINARY: No dysuria or hematuria. HEMATOLOGIC: No unusual bleeding or bruising. MUSCULOSKELETAL: No new myalgias or arthralgias. DERMATOLOGIC: No new skin rashes or lesions. PSYCHIATRIC: Denies depression. Does admit to severe anxiety. ENDOCRINE: No polyuria or polydipsia. PHYSICAL EXAMINATION: GENERAL: This is a well-developed, obese female in no acute distress. EYES: Her pupils are round and reactive. Sclerae are nonicteric. She is wearing glasses. HEENT: Head is atraumatic. Mucous membranes moist. Face symmetric. NECK: Supple without cervical lymphadenopathy, no supraclavicular lymphadenopathy. Neck is nontender without masses. CARDIOVASCULAR: Palpation of her right radial pulse reveals it to be 2+ with no pedal edema and she has regular rate and rhythm by palpation. RESPIRATORY: Respirations are nonlabored. CHEST WALL: Nontender to palpation. ABDOMEN: Soft, nondistended, minimally tender in the upper abdomen. No rebound, no guarding, no Keita's sign. JANY TAYLOR MD DR: AFRICA/starla JOB#: [id number] / [id number] SHANNON Gutiérrez MD, MICHAEL MD MTDD
--- NOTE | 2016-10-04 11:39 | CONS ---
DATE OF CONSULTATION: 10/03/2016 I was in the middle of dictating a consult on this patient when abruptly the dictation system cut off and read me a dictation number. 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 CHIEF COMPLAINT: Abdominal pain. HISTORY OF PRESENT ILLNESS: The patient is a 45-year-old female who presents with severe epigastric and right upper quadrant pain since Saturday. She says the pain has gradually improved. It has been a sharp, constant type of pain. It has been associated with nausea and vomiting. She had similar episodes of pain in the past that were less severe and lasted 30 minutes. This is the first time she has had an episode of pain that was this severe and this constant and of this lengthy of duration. She was admitted through the ER, which ordered a CT scan and which demonstrated pancreatitis. Her lipase has been normal. Ultrasound today reveals cholelithiasis. PAST MEDICAL HISTORY: Severe disabling anxiety. PAST SURGICAL HISTORY: Denies. SOCIAL HISTORY: Nonsmoker, nondrinker. She lives at home with her parents due to her severe disabling anxiety that leaves her unable to leave the house. We talked about her anxiety. I asked what she does for living. She says in her words "mooch" off of her parents because she is unable to function because of her anxiety. She says that she has previously been on medicines for anxiety, but did not like the way they make her feel, therefore she chooses to stay homebound. FAMILY HISTORY: Her father admits to anxiety and her mother admits to having needed cholecystectomy in the past. REVIEW OF SYSTEMS: CONSTITUTIONAL: Denies fevers or chills. EYES: Denies abrupt loss of vision or double vision. EARS, NOSE, MOUTH AND THROAT: Denies loss of hearing or ringing in her ears. CARDIOVASCULAR: Denies chest pain or heart palpitations. RESPIRATORY: Denies cough, shortness breath. GASTROINTESTINAL: See HPI. GENITOURINARY: No dysuria, hematuria. HEMATOLOGIC: No easy bleeding or bruising. MUSCULOSKELETAL: No new myalgias or arthralgias. DERMATOLOGIC: No new skin rashes or lesions. ENDOCRINE: No polyuria or polydipsia. PSYCHIATRIC: No depression, but does have anxiety as described above. NEUROLOGIC: No headaches or seizures. MEDICATIONS AT HOME: None. ALLERGIES: 1. CODEINE. 2. HYDROCODONE. PHYSICAL EXAMINATION: VITAL SIGNS: Her temperature is 99.0, pulse is 90, respiratory rate 18, blood pressure 116/65, O2 sat is 99% on room air. GENERAL: This is a well-developed, well-nourished, obese female in no acute distress. EYES: Pupils are round and reactive. She is wearing glasses. Sclerae are nonicteric. HENT: Head is atraumatic. Mucous membranes are moist. Face is symmetric. NECK: Supple, without cervical lymphadenopathy, no supraclavicular lymphadenopathy. Neck is nontender without masses. CARDIOVASCULAR: By palpation of her right radial pulse, she has a 2+ right radial pulse. No pedal edema. RESPIRATORY: Respirations are nonlabored. CHEST WALL: Nontender to palpation. ABDOMEN: Soft, nondistended, minimally tender in the upper abdomen and right upper quadrant. No Keita sign. No rebound, no guarding. NEUROLOGICAL: Alert and oriented x 3, no resting tremor. PSYCHIATRIC: She is cooperative with appropriate mood and affect with the exception of her anxiety, which grows and she becomes more noticeably anxious more that we discuss her need for surgery. DERMATOLOGIC: Exposed portions of her skin are unremarkable. LABORATORY DATA: Reviewed. IMAGING: Reviewed. ASSESSMENT: 1. Gallstone pancreatitis. 2. Hypokalemia. 3. Hyponatremia. 4. Obesity with a BMI of 34.7. 5. Severe disabling pancreatitis. 6. She has met the criteria for diagnosis of systemic inflammatory response syndrome with a pulse of 100 and leukocytosis. PLAN: We discussed natural history of gallstone pancreatitis and the reality that this will continue to trouble her and could become increasingly severe and life-threatening if she did not undergo cholecystectomy. She and her parents are agreeable with proceeding with cholecystectomy. Surgery is planned tomorrow morning at 7:30. Plan is for laparoscopic cholecystectomy, possible open. Risk of bleeding, infection, need to convert to open, retained common duct stone, bile leak, injury to intra-abdominal structures including bile duct vasculature or hollow viscus as well as remote risk of heart attack, stroke, DVT, PE, pneumonia, and were all discussed with the patient. Questions were answered. Desires to proceed with the procedure. I used the drawing to drawing in machine tender helper the discussion and facilitate questions and her understanding. JANY TAYLOR MD DR: AFRICA/starla JOB#: [id number] / [id number] SHANNON Gutiérrez MD, MICHAEL MD
--- NOTE | 2016-10-04 11:49 | PDOC ---
PROGRESS NOTES Chief Complaint Chief Complaint Gall stone pancreatitis Agoraphobia History of Present Illness History of Present Illness Seen and examined Labs noted Notes reviewed Vitals Vitals Vital Signs Date Time Temp Pulse Resp B/P (MAP) Pulse Ox O2 Delivery O2 Flow Rate FiO2 10/04/16 11:30 89 20 108/64 (79) 95 Room Air 10/04/16 09:55 97.4 97.4 10/04/16 09:10 10 Physical Exam General: Alert, Oriented X3, Cooperative Heart: Regular rate, Normal S1, Normal S2 Lungs: Clear Abdomen: Other (tender) Extremities: No clubbing, No cyanosis Skin: No rashes, No breakdown Labs LABS Laboratory Tests Test 10/03/16 20:30 Sodium Level 134 mmol/L (136-145) Potassium Level 3.4 mmol/L (3.5-5.1) Chloride Level 99 mmol/L (98-107) Carbon Dioxide Level 27 mmol/L (21-32) Anion Gap 8 (6-14) Blood Urea Nitrogen 11 mg/dL (7-20) Creatinine 0.6 mg/dL (0.6-1.0) Estimated GFR (Cockcroft-Gault) 108.6 Glucose Level 110 mg/dL (70-99) Calcium Level 7.5 mg/dL (8.5-10.1) Assessment and Plan Assessmemt and Plan Problems Medical Problems: (1) Hyponatremia Status: Acute (2) Leukocytosis Status: Acute Post Lap Reena Plan Wound care Narcotics Zofran Labd Home emds Problems: Comment Review of Relevant I have reviewed the following items trini (where applicable) has been applied. Labs Laboratory Tests Test 10/02/16 15:20 10/02/16 15:35 10/03/16 03:40 10/03/16 20:30 Urine Collection Type Unknown Urine Color Yellow Urine Clarity Clear Urine pH 6.5 Urine Specific [place] >=1.030 Urine Protein 100 mg/dL (NEG-TRACE) Urine Glucose (UA) Negative mg/dL (NEG) Urine Ketones (Stick) 40 mg/dL (NEG) Urine Blood Negative (NEG) Urine Nitrite Negative (NEG) Urine Bilirubin Negative (NEG) Urine Urobilinogen Dipstick 0.2 mg/dL (0.2 mg/dL) Urine Leukocyte Esterase Small (NEG) Urine RBC 1-2 /HPF (0-2) Urine WBC 1-4 /HPF (0-4) Urine Squamous Epithelial Cells Mod /LPF Urine Transitional Epithelial Cells Few /LPF Urine Bacteria 0 /HPF (0-FEW) White Blood Count 25.1 x10^3/uL (4.0-11.0) 21.3 x10^3/uL (4.0-11.0) Red Blood Count 5.01 x10^6/uL (3.50-5.40) 4.07 x10^6/uL (3.50-5.40) Hemoglobin 14.5 g/dL (12.0-15.5) 11.8 g/dL (12.0-15.5) Hematocrit 43.5 % (36.0-47.0) 35.6 % (36.0-47.0) Mean Corpuscular Volume 87 fL (79-100) 88 fL (79-100) Mean Corpuscular Hemoglobin 29 pg (25-35) 29 pg (25-35) Mean Corpuscular Hemoglobin Concent 33 g/dL (31-37) 33 g/dL (31-37) Red Cell Distribution Width 13.2 % (11.5-14.5) 13.4 % (11.5-14.5) Platelet Count 319 x10^3/uL (140-400) 274 x10^3/uL (140-400) Neutrophils (%) (Auto) 92 % (31-73) 90 % (31-73) Lymphocytes (%) (Auto) 3 % (24-48) 5 % (24-48) Monocytes (%) (Auto) 4 % (0-9) 5 % (0-9) Eosinophils (%) (Auto) 0 % (0-3) 0 % (0-3) Basophils (%) (Auto) 0 % (0-3) 0 % (0-3) Neutrophils # (Auto) 23.2 x10^3uL (1.8-7.7) 19.1 x10^3uL (1.8-7.7) Lymphocytes # (Auto) 0.9 x10^3/uL (1.0-4.8) 1.0 x10^3/uL (1.0-4.8) Monocytes # (Auto) 1.0 x10^3/uL (0.0-1.1) 1.1 x10^3/uL (0.0-1.1) Eosinophils # (Auto) 0.1 x10^3/uL (0.0-0.7) 0.0 x10^3/uL (0.0-0.7) Basophils # (Auto) 0.1 x10^3/uL (0.0-0.2) 0.0 x10^3/uL (0.0-0.2) Segmented Neutrophils % 86 % (35-66) Band Neutrophils % 4 % (0-9) Lymphocytes % 6 % (24-48) Monocytes % 4 % (0-10) Platelet Estimate Adequate (ADEQUATE) Sodium Level 129 mmol/L (136-145) 134 mmol/L (136-145) 134 mmol/L (136-145) Potassium Level 3.3 mmol/L (3.5-5.1) 2.9 mmol/L (3.5-5.1) 3.4 mmol/L (3.5-5.1) Chloride Level 90 mmol/L (98-107) 96 mmol/L (98-107) 99 mmol/L (98-107) Carbon Dioxide Level 34 mmol/L (21-32) 29 mmol/L (21-32) 27 mmol/L (21-32) Anion Gap 5 (6-14) 9 (6-14) 8 (6-14) Blood Urea Nitrogen 22 mg/dL (7-20) 14 mg/dL (7-20) 11 mg/dL (7-20) Creatinine 1.0 mg/dL (0.6-1.0) 0.7 mg/dL (0.6-1.0) 0.6 mg/dL (0.6-1.0) Estimated GFR (Cockcroft-Gault) 60.2 90.9 108.6 BUN/Creatinine Ratio 22 (6-20) 20 (6-20) Glucose Level 141 mg/dL (70-99) 105 mg/dL (70-99) 110 mg/dL (70-99) Calcium Level 8.8 mg/dL (8.5-10.1) 7.6 mg/dL (8.5-10.1) 7.5 mg/dL (8.5-10.1) Total Bilirubin 1.3 mg/dL (0.2-1.0) 1.0 mg/dL (0.2-1.0) Aspartate Amino Transf (AST/SGOT) 50 U/L (15-37) 33 U/L (15-37) Alanine Aminotransferase (ALT/SGPT) 169 U/L (14-59) 106 U/L (14-59) Alkaline Phosphatase 146 U/L (46-116) 123 U/L (46-116) Total Protein 8.2 g/dL (6.4-8.2) 6.5 g/dL (6.4-8.2) Albumin 2.9 g/dL (3.4-5.0) 2.2 g/dL (3.4-5.0) Albumin/Globulin Ratio 0.5 (1.0-1.7) 0.5 (1.0-1.7) Lipase 361 U/L (73-393) 173 U/L (73-393) Triglycerides Level 52 mg/dL (0-150) Laboratory Tests Test 10/03/16 20:30 Sodium Level 134 mmol/L (136-145) Potassium Level 3.4 mmol/L (3.5-5.1) Chloride Level 99 mmol/L (98-107) Carbon Dioxide Level 27 mmol/L (21-32) Anion Gap 8 (6-14) Blood Urea Nitrogen 11 mg/dL (7-20) Creatinine 0.6 mg/dL (0.6-1.0) Estimated GFR (Cockcroft-Gault) 108.6 Glucose Level 110 mg/dL (70-99) Calcium Level 7.5 mg/dL (8.5-10.1) Medications Current Medications Sodium Chloride 1,000 ml @ 1,000 mls/hr 1X ONCE IV Last administered on 15:40; Start 10/02/16 at 15:00; Stop 10/02/16 at 15:59; Status DC Ondansetron HCl (Zofran) 4 mg 1X ONCE IV Last administered on 10/02/16 15:40 ; Start 10/02/16 at 15:00; Stop 10/02/16 at 15:01; Status DC Iohexol (Omnipaque 300 Mg/ml) 75 ml 1X ONCE IV Last administered on 10/02/16 17:07; Start 10/02/16 at 16:30; Stop 10/02/16 at 16:31; Status DC Info (Do NOT chart on this entry -- for MONITORING) 1 each PRN DAILY PRN MC SEE COMMENTS; Start 10/02/16 at 16:30; Stop 10/04/16 at 16:29 Prochlorperazine Edisylate (Compazine) 10 mg 1X ONCE IV Last administered on 16:42; Start 10/02/16 at 16:45; Stop 10/02/16 at 16:46; Status DC Norepinephrine Bitartrate 250 ml @ 0 mls/hr CONT PRN IV SEE I/O RECORD; Start 10/02/16 at 18:00; Stop 10/02/16 at 18:42; Status DC Dobutamine HCl/ Dextrose 250 ml @ 0 mls/hr CONT PRN IV SEE I/O RECORD; Start at 18:00; Stop 10/02/16 at 18:42; Status DC Ondansetron HCl (Zofran) 4 mg PRN Q8HRS PRN IV NAUSEA/VOMITING; Start 10/02/16 at 18:00; Stop 10/03/16 at 17:59; Status DC Fentanyl Citrate (Fentanyl 2ml Vial) 50 mcg PRN Q1HR PRN IV PAIN; Start at 18:00; Stop 10/02/16 at 22:58; Status DC Sodium Chloride 1,000 ml @ 125 mls/hr 1X ONCE IV Last administered on 19:27; Start 10/02/16 at 18:00; Stop 10/03/16 at 01:59; Status DC Prochlorperazine Edisylate (Compazine) 10 mg Q8HRS PRN IV VOMITING; Start 10/02 at 18:00; Stop 10/03/16 at 17:58; Status DC Famotidine (Pepcid) 20 mg BID IVP Last administered on 10/03/16 21:23; Start 10/02/16 at 18:30 Fentanyl Citrate (Fentanyl 2ml Vial) 25 mcg PRN Q2HR PRN IV SEVERE PAIN Last administered on 10/03/16 16:30; Start 10/02/16 at 23:00; Stop 10/03/16 at 22:59 ; Status DC Lorazepam (Ativan) 0.5 mg PRN Q8HRS PRN IV ANXIETY / AGITATION; Start 10/02/16 at 23:00 Potassium Chloride (Klor-Con) 40 meq [id number]/[id number] PO ; Start 10/03/16 at 08:00; Stop 10/03/16 at 20:00; Status DC Potassium Chloride 100 ml @ 100 mls/hr Q1H IV Last administered on 10/03/16 18:45; Start 10/03/16 at 09:30; Stop 10/03/16 at 13:29; Status DC Ketorolac Tromethamine (Toradol) 30 mg PRN Q6HRS PRN PO MILD PAIN; Start at 14:15; Stop 10/03/16 at 21:35; Status DC Cefazolin Sodium/ Dextrose 50 ml @ 100 mls/hr 1X ONCE IV Last administered on 10/04/16 08:00; Start 10/04/16 at 07:30; Stop 10/04/16 at 07:59; Status DC Prochlorperazine Edisylate (Compazine) 10 mg PRN Q8HRS PRN IV VOMITING; Start 10/03/16 at 18:00 Acetaminophen (Tylenol) 325 mg PRN Q4HRS PRN PO MILD PAIN / TEMP Last administered on 10/03/16 21:23; Start 10/03/16 at 21:15 Potassium Chloride (Klor-Con) 40 meq 1X ONCE PO ; Start 10/03/16 at 22:00; Stop 10/03/16 at 22:01; Status DC Potassium Chloride (KCl Oral Soln) 40 meq 1X ONCE PO Last administered on 10/03 23:20; Start 10/03/16 at 22:30; Stop 10/03/16 at 22:31; Status DC Potassium Chloride (KCl Oral Soln) 40 meq 1X ONCE PEG ; Start 10/03/16 at 22:30 ; Stop 10/03/16 at 22:31; Status DC Fentanyl Citrate (Fentanyl 2ml Vial) 25 mcg PRN Q2HR PRN IV PAIN Last administered on 10/04/16 03:14; Start 10/04/16 at 03:00; Stop 10/05/16 at 03:00 Ringer's Solution 1,000 ml @ 75 mls/hr [id number] IV Last administered on t 07:15; Start 10/04/16 at 07:15 Cellulose 1 each STK-MED ONCE .ROUTE ; Start 10/04/16 at 07:13; Stop 10/04/16 at 07:14; Status DC Iohexol (Omnipaque 300 Mg/ml) 50 ml STK-MED ONCE .ROUTE Last administered on t 08:12; Start 10/04/16 at 07:13; Stop 10/04/16 at 07:14; Status DC Dexamethasone Sodium Phosphate (Decadron) 20 mg STK-MED ONCE .ROUTE ; Start at 07:14; Stop 10/04/16 at 07:15; Status DC Famotidine (Pepcid) 20 mg STK-MED ONCE .ROUTE ; Start 10/04/16 at 07:14; Stop at 07:15; Status DC Ondansetron HCl (Zofran) 4 mg STK-MED ONCE .ROUTE ; Start 10/04/16 at 07:14; Stop 10/04/16 at 07:15; Status DC Propofol 20 ml @ As Directed STK-MED ONCE IV ; Start 10/04/16 at 07:14; Stop at 07:15; Status DC Lidocaine HCl (Lidocaine Pf 2% Vial) 5 ml STK-MED ONCE .ROUTE ; Start 10/04/16 at 07:14; Stop 10/04/16 at 07:15; Status DC Fentanyl Citrate (Fentanyl 2ml Vial) 100 mcg STK-MED ONCE .ROUTE ; Start at 07:14; Stop 10/04/16 at 07:15; Status DC Rocuronium Dow[place] (Zemuron) 50 mg STK-MED ONCE .ROUTE ; Start 10/04/16 at 07:14 ; Stop 10/04/16 at 07:15; Status DC Succinylcholine Chloride (Anectine) 200 mg STK-MED ONCE .ROUTE ; Start 10/04/16 at 07:14; Stop 10/04/16 at 07:15; Status DC Midazolam HCl (Versed) 2 mg STK-MED ONCE .ROUTE ; Start 10/04/16 at 07:15; Stop 10/04/16 at 07:16; Status DC Ondansetron HCl (Zofran) 4 mg PRN Q6HRS PRN IV NAUSEA/VOMITING; Start 10/04/16 at 07:30; Stop 10/04/16 at 18:00 Fentanyl Citrate (Fentanyl 2ml Vial) 25 mcg PRN Q5MIN PRN IV MILD PAIN; Start 10/04/16 at 07:30; Stop 10/04/16 at 18:00 Fentanyl Citrate (Fentanyl 2ml Vial) 50 mcg PRN Q5MIN PRN IV MODERATE PAIN; Start 10/04/16 at 07:30; Stop 10/04/16 at 18:00 Ringer's Solution 1,000 ml @ 30 mls/hr Q24H IV ; Start 10/04/16 at 07:27; Stop 10/04/16 at 19:26 Lidocaine HCl 2 ml PRN 1X PRN ID PRIOR TO IV START; Start 10/04/16 at 07:30; Stop 10/04/16 at 18:00 Prochlorperazine Edisylate (Compazine) 5 mg PACU PRN PRN IV NAUSEA, MRX1 Last administered on 10/04/16t 09:48; Start 10/04/16 at 07:30; Stop 10/04/16 at 18:00 Bupivacaine HCl/ Epinephrine Bitart (Sensorcain-Mpf Epi 0.5%-1:050076) 30 ml STK -MED ONCE .ROUTE ; Start 10/04/16 at 07:30; Stop 10/04/16 at 07:31; Status Cancel Bupivacaine HCl/ Epinephrine Bitart (Sensorcain-Mpf Epi 0.5%-1:906115) 30 ml 1X ONCE IJ Last administered on 10/04/16t 08:12; Start 10/04/16 at 08:00; Stop 10/04/16 at 08:01; Status DC Fentanyl Citrate (Fentanyl 2ml Vial) 100 mcg STK-MED ONCE .ROUTE ; Start at 08:23; Stop 10/04/16 at 08:24; Status DC Desflurane (Suprane) 60 ml STK-MED ONCE IH ; Start 10/04/16 at 08:32; Stop 10/04 at 08:33; Status DC Glycopyrrolate (Robinul) 1 mg STK-MED ONCE .ROUTE ; Start 10/04/16 at 08:43; Stop 10/04/16 at 08:44; Status DC Neostigmine Methylsulfate 5 mg STK-MED ONCE .ROUTE ; Start 10/04/16 at 08:43; Stop 10/04/16 at 08:44; Status DC Ketorolac Tromethamine (Toradol For Or Only) 60 mg STK-MED ONCE .ROUTE ; Start 10/04/16 at 08:49; Stop 10/04/16 at 08:50; Status DC Tramadol HCl (Ultram) 50 mg PRN Q6HRS PRN PO PAIN; Start 10/04/16 at 09:15 Ibuprofen (Motrin) 800 mg PRN Q8HRS PRN PO INFLAMMATION; Start 10/04/16 at 09: 15 Vitals/I & O Vital Sign - Last 24 Hours 10/03/16 10/03/16 10/03/16 10/03/16 15:10 16:30 17:00 19:00 Temp 99.0 99.6 99.0 99.6 Pulse 90 95 Resp 18 20 20 20 B/P (MAP) 116/65 (82) 113/69 (84) Pulse Ox 99 99 99 99 O2 Delivery Room Air Room Air Room Air Room Air 10/03/16 10/03/16 10/04/16 10/04/16 19:30 23:00 03:00 03:14 Temp 99.1 99.8 99.1 99.8 Pulse 101 106 Resp 20 20 20 B/P (MAP) 100/69 (79) 105/65 (78) Pulse Ox 97 96 94 O2 Delivery Room Air Room Air Room Air Room Air 10/04/16 10/04/16 10/04/16 10/04/16 06:48 09:10 09:25 09:40 Temp 100 98.5 100.0 98.5 Pulse 96 83 87 89 Resp 20 16 16 16 B/P (MAP) 108/57 101/85 117/66 102/65 Pulse Ox 97 99 94 94 O2 Delivery Room Air Simple Mask Room Air Room Air O2 Flow Rate 10 10/04/16 10/04/16 10/04/16 10/04/16 09:55 10:45 11:00 11:00 Temp 97.4 97.4 Pulse 80 74 82 Resp 16 20 20 B/P (MAP) 105/61 116/54 (74) 116/62 (80) Pulse Ox 93 94 93 O2 Delivery Room Air Room Air Room Air Room Air 10/04/16 10/04/16 11:15 11:30 Pulse 86 89 Resp 20 20 B/P (MAP) 108/65 (79) 108/64 (79) Pulse Ox 95 95 O2 Delivery Room Air Room Air Intake and Output 10/03/16 10/03/16 10/04/16 15:00 23:00 07:00 Intake Total 1180 ml 200 ml Balance 1180 ml 200 ml TRACEE LAU III DO Oct 04, 2016 11:49
[2016-10-04] MEDS: traMADol 50 MG TABLET PO PRN (16:51)
--- NOTE | 2016-10-04 20:03 | OP ---
DATE OF SURGERY: 10/02/2016 PREOPERATIVE DIAGNOSIS: Gallstone pancreatitis. POSTOPERATIVE DIAGNOSIS: Gallstone pancreatitis. PROCEDURE: Laparoscopic cholecystectomy with intraoperative cholangiogram. SURGEON: Jany Taylor MD ANESTHESIA: General. ESTIMATED BLOOD LOSS: 10 mL. IV FLUIDS: 900 mL. INDICATIONS: The patient is a 45-year-old female who presents with gallstone pancreatitis. PROCEDURE IN DETAIL: After informed consent was obtained, the patient was taken to the operating room and placed in supine position. After adequate induction of general anesthesia, she was prepped and draped in usual sterile fashion. An umbilical skin incision was made with a scalpel, subcutaneous tissues with a hemostat. [facility] was used to grab the fascia and lift it anteriorly. Veress was used to gain access to the peritoneal cavity. Low opening pressures confirmed intraperitoneal placement of Veress. Pneumoperitoneum to 15 mmHg was established followed by placement of 5 mm port. A 5-mm 30-degree lens was inserted, which revealed good port placement. No evidence of entry trauma. She was placed head up, rotated towards her left. Three additional ports were placed under direct vision, one was an 11 mm epigastric port and two were 5 mm right lateral ports. The gallbladder was intensely encased in adhesive, changes consistent with an element of cholecystitis. The fundus of the gallbladder was retracted over the liver and slightly towards the right. The omentum and inflammatory adhesions were taken down with cautery as well as blunt dissection. The infundibulum was identified. The infundibulum was retracted towards the right and towards her toes to open the triangle of Calot. [place] dissector was used to dissect out the triangle of Calot. At the completion of dissection, two structures were seen leading directly to the gallbladder, one was a cystic artery and one was a cystic duct. The liver could be seen behind the gallbladder and the gallbladder had been dissected away from extraneous tissues. Two clips were placed on cystic artery proximally, one distally and a clip was placed on cystic duct adjacent to the gallbladder. Ductotomy was made with scissors. Intraoperative cholangiogram showed free flow of contrast through the cystic duct, common bile duct, common hepatic, left and right hepatics, intrahepatic radicles, free flow of contrast into the duodenum with no filling defects noted. The cholangiogram catheter was removed and three clips were placed on cystic duct, distal to the ductotomy. Ductotomy completed with scissors. Cystic duct was a large duct and the clips barely encompassed the entire diameter of the duct. Therefore, the cystic duct stump was further secured with a PDS Endoloop. Care was taken to make sure that the Endoloop as well as the clips were only on portions of the cystic duct that had been dissected away from surrounding tissue. The cystic artery was transected sharply. Gallbladder was removed from the bed of the liver with cautery and placed in a laparoscopic bag and brought out through the epigastric incision. The right upper quadrant was irrigated. There was a minimal amount of bleeding from the liver bed, which was easily controlled with cautery. The right upper quadrant was irrigated again, the area was hemostatic. The clips were securely in place. There was no bleeding or bile leakage noted. Fascial closure device was used to close the fascia at the epigastric incision using 0 Vicryl suture. The ports removed under direct vision. They were hemostatic. Pneumoperitoneum was desufflated. Skin incisions were closed with 4-0 Monocryl in subcuticular fashion. Sterile dressings were placed. She tolerated the procedure well. There were no apparent complications. She was transferred in stable condition to the recovery room. JANY TAYLOR MD DR: AFRICA/starla JOB#: [id number] / [id number] REJI Swanson MD [facility]
[2016-10-04] MEDS: ACETAMINOPHEN 325 MG TABLET. PO PRN (21:47)
[2016-10-05] MEDS: traMADol 50 MG TABLET PO PRN (05:04)
[2016-10-05 07:00] VITALS: BP 126/77
[2016-10-05] MEDS: FAMOTIDINE 20 MG/2 ML VIAL IVP SCH (07:41)
--- NOTE | 2016-10-05 09:13 | PDOC ---
SURGICAL PROGRESS NOTE Subjective tolerating diet feels better no nausea urinating Vital Signs Vital Signs Date Time Temp Pulse Resp B/P (MAP) Pulse Ox O2 Delivery O2 Flow Rate FiO2 10/05/16 08:00 Room Air 10.0 10/05/16 07:00 97.8 81 20 126/77 (93) 96 97.8 I&O Intake and Output 10/05/16 06:59 Intake Total 2550 ml Balance 2550 ml Intake Oral 2550 ml # Voids 4 General: Alert, Oriented X3, Cooperative, No acute distress Abdomen: Soft, Other (lap dressings dry, minimal incisional tenderness ) Labs Laboratory Tests Test 10/03/16 20:30 Sodium Level 134 mmol/L (136-145) Potassium Level 3.4 mmol/L (3.5-5.1) Chloride Level 99 mmol/L (98-107) Carbon Dioxide Level 27 mmol/L (21-32) Anion Gap 8 (6-14) Blood Urea Nitrogen 11 mg/dL (7-20) Creatinine 0.6 mg/dL (0.6-1.0) Estimated GFR (Cockcroft-Gault) 108.6 Glucose Level 110 mg/dL (70-99) Calcium Level 7.5 mg/dL (8.5-10.1) Problem List Problems Medical Problems: (1) Hyponatremia Status: Acute (2) Leukocytosis Status: Acute Assessment/Plan s/p lap neel ok to ut home from surgical pov FU 2 weeks Problems: RAUL COELHO APRN Oct 05, 2016 09:13
[2016-10-05] MEDS ORDERED: TRAM-48 PO ×2 (09:32→09:33)
--- NOTE | 2016-10-05 13:37 | PATHOLOGY ---
PATHOLOGY REPORT * * * * * * * * FINAL DIAGNOSIS: Gallbladder, "gallbladder with contents", cholecystectomy: - Moderate chronic cholecystitis with cholelithiasis. - The attached lymph node reveals reactive changes. ([facility]; d/t: 10/05/2016) REPORT ELECTRONICALLY SIGNED BY: Westley Anders M.D. DATE/TIME: 10/05/2016 13:36 * * * * * * * * GROSS PATHOLOGY: Received in formalin labeled "Dominick Clements, gallbladder sac with contents," is a 11.5 x 3.8 x 2.5 cm, partially opened gallbladder with sanchez green, bile stained serosal surfaces. Opening the gallbladder reveals dark green to yellow red, velvety mucosa and an average wall thickness of 0.3 cm. Calculi are present and no masses are noted grossly. There are multiple calculi and calculi fragments tightly impacted within the neck of the gallbladder, immediately adjacent to the stapled line of resection. Clinical Laboratory Assistant sections from the body and fundus are submitted along with the proximal margin in cassette A1. ([facility]; 10/04/16) INITIAL CPT CODE(S): A; 83511 Professional services performed by [facility] [place] [address] Technical services performed by [facility] at [address] [place] [address], [facility] [address], [place] [address]. SPECIMEN(S) RECEIVED: A.Gallbladder sac with contents CLINICAL HISTORY: Gallstone pancreatitis PATIENT: DOMINICK CLEMENTS /AGE: 811/18/1970 (Age: 45) PATIENT #: [id number] ALT CASE #: SPECIMEN COLLECTION DATE: 10/04/2016 SPECIMEN RECEIVED DATE: 10/04/2016 [facility] - [id number] [place] [address] - PHONE: [phone] * * * END OF REPORT * * *
--- NOTE | 2016-10-05 21:00 | DS ---
DATE OF DISCHARGE: 10/05/2016 ADMISSION DIAGNOSIS: Symptomatic gallstones with pancreatitis. DISCHARGE DIAGNOSIS: Postop laparoscopic cholecystectomy. HOSPITAL COURSE: The patient is a pleasant 45-year-old, relatively healthy lady, although she does have agoraphobia. Basically, she presented with gallstone pancreatitis. She was admitted. We consulted General Surgery. She was taken for a laparoscopic cholecystectomy this morning. She was up eating. I did see and examine the patient's morning heart tones, were normal. Her lungs were clear. Abdomen was soft with clean bandaging. Extremities, no edema. We plan to discharge. DISPOSITION: Home. ACTIVITY: As tolerated. DIET: Low sodium. MEDICATIONS: Please see the MRAD. TOTAL TIME ON DISCHARGE: 31 minutes. TRACEE LAU DO DR: ESTEFANY/starla JOB#: [id number] / [id number]
== END 2016-10-05 10:02 | disposition home or self-care (01) | DRG 417 ==
LOC: ER 13:40 → 5 SOUTH 17:08
PROVIDERS: ADMIT Internal Medicine Hematology & Oncology; ATTEND Internal Medicine Hematology & Oncology
PROC: 0FT44ZZ Resection of Gallbladder, Percutaneous Endoscopic Approach (ICD-10-PCS; principal; 2016-10-02)
PROC: BF131ZZ Fluoroscopy of Gallbladder and Bile Ducts using Low Osmolar Contrast (ICD-10-PCS; 2016-10-02)
DX: K85.10 Biliary acute pancreatitis without necrosis or infection (principal); E43 Unspecified severe protein-calorie malnutrition; E87.1 Hypo-osmolality and hyponatremia; R65.10 Systemic inflammatory response syndrome (SIRS) of non-infectious origin without acute organ dysfunction; K80.20 Calculus of gallbladder without cholecystitis without obstruction; E66.9 Obesity, unspecified; E87.6 Hypokalemia; F41.0 Panic disorder [episodic paroxysmal anxiety]; F40.00 Agoraphobia, unspecified; K59.00 Constipation, unspecified; Z80.0 Family history of malignant neoplasm of digestive organs; Z68.34 Body mass index [BMI] 34.0-34.9, adult; Z82.49 Family history of ischemic heart disease and other diseases of the circulatory system; Z88.5 Allergy status to narcotic agent
CPT/HCPCS: 36415; 74022; 74177; 74300; 76700; 80048; 80053; 81001; 83690; 84478; 85007; 85027; 88304; 96361; 96374; 96375; 96376; J0330; J0690; J0780; J1100; J1885; J2250; J2405; J2704; J2710; J3010; J3480; J3490; J7030; J7120; Q9967; S0028; 99285-25